=== PATIENT | female | born 1950 | race Caucasian/White ===

== ENCOUNTER 2019-06-01 08:04 | Outpatient (CLI) | payer BC, MEDICARE ==
--- NOTE | 2019-06-10 15:25 | MMO ---
Bilateral MAMMO Bilat Screen DDI+SWAPNIL. CLINICAL HISTORY: Patient is 69 years old and is seen for screening. The patient has the following family history of breast cancer: sister, malignant (generic). The patient has no personal history of cancer. VIEWS: The views performed were: bilateral craniocaudal with tomosynthesis and bilateral mediolateral oblique with tomosynthesis. FILMS COMPARED: The present examination has been compared to a prior imaging study performed at [facility] on 01/30/2011. This study has been interpreted with the assistance of computer-aided detection. MAMMOGRAM FINDINGS: There are scattered fibroglandular densities. There is a new oval mass measuring 5 millimeters with circumscribed margins seen in the left breast at 5 o'clock. In the right breast, there are no suspicious masses, calcifications or areas of architectural distortion. IMPRESSION: NEW MASS IN THE LEFT BREAST REQUIRES ADDITIONAL EVALUATION. AN ULTRASOUND EXAM IS RECOMMENDED. THE RESULTS OF THIS EXAM WERE SENT TO THE PATIENT. ACR BI-RADS Category 0 - Incomplete: Need additional imaging evaluation. [facility] will notify the patient of the need for additional imaging services. MAMMOGRAPHY NOTE: 1. A negative mammogram report should not delay a biopsy if a dominant of clinically suspicious mass is present. 2. Approximately 10% to 15% of breast cancers are not detected by mammography. 3. Adenosis and dense breasts may obscure an underlying neoplasm. Reported by: KAY BURCIAGA MD Electonically Signed: [id number]
== END 2019-06-01 08:05 | disposition home or self-care (01) ==
LOC: BICMAMMO 08:04
DX: Z12.31 Encounter for screening mammogram for malignant neoplasm of breast (principal); Z80.3 Family history of malignant neoplasm of breast; N63.20 Unspecified lump in the left breast, unspecified quadrant
CPT/HCPCS: 77063; 77067

== ENCOUNTER 2019-06-14 07:55 | Outpatient (CLI) | payer BC, MEDICARE ==
--- NOTE | 2019-06-14 10:46 | ULT ---
LIMITED ULTRASOUND LEFT BREAST: Date: 06/14/2019 HISTORY: Newly developed mass 5 o'clock position left breast noted on mammographic evaluation. FINDINGS: There is a circumscribed heterogeneous but predominantly hypoechoic mass seen in the left breast at t he 5 o'clock position which measures approximately 4.0 mm. This is thought to correspond to the mammo graphic abnormality. This mass cannot be confirmed to represent a cyst on this exam. IMPRESSION: BI-RADS Category 4 - Suspicious abnormality. Biopsy is recommended. The mass in the left breast is am enable to ultrasound-guided left breast biopsy. Above findings discussed with Dr. Negro Daily on 06/14/2019 at 0911 hours. These findings were also discussed with the patient at the time of ultrasound. CODE CR. POS: OFF
--- NOTE | 2019-06-14 13:46 | MMO ---
Left Breast MAMMO Unilat Diag DDI LT, Left US Breast Limited Lt and US Breast Bx US Guided. CLINICAL HISTORY: Patient is 69 years old and is seen for diagnostic exam. The patient has the following family history of breast cancer: sister, malignant (generic). The patient has no personal history of cancer. The patient has a history of left Ultrasound Guided Core Biopsy in May,. VIEWS: The views performed were: left craniocaudal and left mediolateral. FILMS COMPARED: The present examination has been compared to prior imaging studies performed at [facility] on 01/30/2011, and at [facility] on 06/01/2019. This study has been interpreted with the assistance of computer-aided detection. MAMMOGRAM FINDINGS: There is a biopsy clip seen in the left breast. The previously seen mass in the lower outer left breast is no longer seen. The biopsy clip is seen in the lower and central left breast and more medially located than the previously seen mass. However, after 3 biopsy specimens were obtained, the mass on ultrasound could no longer be visualized, and the clip was placed in the expected location of the mass. IMPRESSION: BIOPSY CLIP IN THE LEFT BREAST IS CONFIRMED UTILIZING POST PROCEDURE MAMMOGRAM. THE RESULTS OF THIS EXAM WERE SENT TO THE PATIENT. MAMMOGRAPHY NOTE: 1. A negative mammogram report should not delay a biopsy if a dominant of clinically suspicious mass is present. 2. Approximately 10% to 15% of breast cancers are not detected by mammography. 3. Adenosis and dense breasts may obscure an underlying neoplasm. Reported by: ANTHONY ABDI MD Electonically Signed: [id number]
--- NOTE | 2019-06-15 07:47 | ULT ---
ULTRASOUND GUIDED BIOPSY LEFT BREAST MASS: 06/14/19 HISTORY: Mass left breast noted on sonographic evaluation. Biopsy was recommended. TECHNIQUE: After informed consent was obtained, patient was placed on the sonography table in the supine positi on. Mass in the left breast 5 o'clock position was localized. The area was meticulously prepped and draped in the usual sterile fashion. Skin and subcutaneous tissues were infiltrated with buffered 1% lidocaine for local anesthesia. Small skin incision was made. Utilizing current real time ultrasound guidance, a total of four 14 gauge co re needle biopsy specimens were obtained. The lesion was much less perceptible after second performed biopsy. However, there is questionable small additional residual lesion and as the result, two addit ional biopsy specimens were obtained. The lesion was not seen after biopsy was performed. As the result, biopsy marker clip was placed near the expected location of the previously seen lesion. Hemostasis was achieved with direct pressure. Dry sterile dressing was placed. Patient tolerated the procedure well and without immediate complication. Left breast mammogram was performed after biopsy m arker clip placement. Mammograms demonstrate that the biopsy marker clip is more medially located in the site of previous mass which is likely related to difficulty in localizing lesion after biopsy sp ecimens were performed. However, the mass is no longer seen on mammographic imaging. IMPRESSION: 1. Technically successful ultrasound guided biopsy left breast mass. 2. Technically successful biopsy marker clip placed in the region of the previously noted mass. As noted above, the biopsy marker clip was not placed in the exact location of the mass as the mass w as not able to be well demonstrated after biopsy specimens were performed. The biopsy marker clip is noted to be medial to site of previously noted mass on mammographic evaluation. POS: OFF
== END 2019-06-14 07:56 | disposition home or self-care (01) ==
LOC: BICULT 07:55
PROVIDERS: ATTEND Family Medicine
DX: R92.8 Other abnormal and inconclusive findings on diagnostic imaging of breast (principal); N63.20 Unspecified lump in the left breast, unspecified quadrant
CPT/HCPCS: 19083

== ENCOUNTER 2020-02-01 07:53 | Outpatient (CLI) | payer MEDICARE, OTHER ==
--- NOTE | 2020-02-01 09:34 | BD ---
BONE DENSITOMETRY: INDICATION: Postmenopausal screening. FINDINGS: Lumbar Spine: BMD (g/cm2) L1 0.754 T-Score: -2.1 L2 0.723 T-Score: -2.8 L3 0.785 T-Score: -2.7 L4 0.798 T-Score: -2.4 L1-L4 0.767 T-Score: -2.5 Femoral Neck: 0.649 T-Score: -1.8 Total Femur: 0.832 T-Score: -0.9 Impression: 1. Bone mineral density of the lumbar spine indicates osteoporosis. 2. Bone mineral density of the femoral neck indicates osteopenia. TEN-YEAR FRACTURE RISK: Major osteoporotic fracture: 16%. Hip fracture: 2.7%. POS: AH
== END 2020-02-01 07:54 | disposition home or self-care (01) ==
LOC: BICMAMMO 07:53
PROVIDERS: ATTEND Internal Medicine Rheumatology
DX: M81.0 Age-related osteoporosis without current pathological fracture (principal); M85.859 Other specified disorders of bone density and structure, unspecified thigh
CPT/HCPCS: 77080

== ENCOUNTER 2020-07-13 10:46 | Outpatient (CLI) | payer MEDICARE, OTHER | END 2020-07-13 10:47 | disposition home or self-care (01) | LOC: BICMAMMO 10:46 | PROVIDERS: ATTEND Family Medicine | DX: Z12.31 Encounter for screening mammogram for malignant neoplasm of breast (principal); Z80.3 Family history of malignant neoplasm of breast | CPT/HCPCS: 77063; 77067 ==

== ENCOUNTER 2020-12-27 14:59 | Outpatient (CLI) | payer MEDICARE, OTHER | END 2020-12-27 15:00 | disposition home or self-care (01) | LOC: BICRAD 14:59 | PROVIDERS: ATTEND Specialist | DX: M51.16 Intervertebral disc disorders with radiculopathy, lumbar region (principal); M47.26 Other spondylosis with radiculopathy, lumbar region | CPT/HCPCS: 72110 ==

== ENCOUNTER 2021-01-03 08:42 | Outpatient (CLI) | payer MEDICARE, OTHER | END 2021-01-03 08:43 | disposition home or self-care (01) | LOC: TBSIIMAG 08:42 | PROVIDERS: ATTEND Specialist | DX: M51.16 Intervertebral disc disorders with radiculopathy, lumbar region (principal) | CPT/HCPCS: 72148 ==

== ENCOUNTER 2022-02-27 10:39 | Outpatient (CLI) | payer MEDICARE, OTHER | END 2022-02-27 10:40 | disposition home or self-care (01) | LOC: BICMAMMO 10:39 | PROVIDERS: ATTEND Internal Medicine Rheumatology | DX: M81.0 Age-related osteoporosis without current pathological fracture (principal); M85.89 Other specified disorders of bone density and structure, multiple sites | CPT/HCPCS: 77080 ==

== ENCOUNTER 2022-08-22 07:01 | Outpatient (CLI) | payer MEDICARE, OTHER | END 2022-08-22 07:02 | disposition home or self-care (01) | LOC: BICULT 07:01 | PROVIDERS: ATTEND Internal Medicine Gastroenterology | DX: K58.9 Irritable bowel syndrome, unspecified (principal); K21.9 Gastro-esophageal reflux disease without esophagitis; F43.9 Reaction to severe stress, unspecified | CPT/HCPCS: 76700 ==

== ENCOUNTER 2024-04-12 08:53 | Outpatient (CLI) | payer MEDICARE, OTHER | END 2024-04-12 08:54 | disposition home or self-care (01) | LOC: BICMAMMO 08:53 | PROVIDERS: ATTEND Internal Medicine Rheumatology | DX: M81.0 Age-related osteoporosis without current pathological fracture (principal); M85.89 Other specified disorders of bone density and structure, multiple sites | CPT/HCPCS: 77080 ==